=== PATIENT | male | born 1960 | race Caucasian/White ===

== ENCOUNTER 2018-03-05 08:35 | Outpatient (RCR) | payer OTHER, SELFPAY ==
--- NOTE | 2018-03-05 12:26 | HP.FCE ---
HP OT Functional Capacity Eval - Task Lift Floor (Occasional 1-33% of Day): 55 Floor (Frequent 34-66% of Day): 27 Floor (Constant 67-100% of Day): 11 Floor PDL: Medium-Heavy Knee (Occasional 1-33% of Day): 55 Knee (Frequent 34-66% of Day): 27 Knee (Constant 67-100% of Day): 11 Knee PDL: Medium-Heavy Waist (Occasional 1-33% of Day): 55 Waist (Frequent 34-66% of Day): 27 Waist (Constant 67-100% of Day): 11 Waist PDL: Medium-Heavy Shoulder (Occasional 1-33% of Day): 40 Shoulder (Frequent 34-66% of Day): 20 Shoulder (Constant 67-100% of Day): 8 Shoulder PDL: Light-Medium Overhead (Occasional 1-33% of Day): 20 Overhead (Frequent 34-66% of Day): 10 Overhead (Constant 67-100% of Day): NA Overhead PDL: Light Comments: pt demo good lift ability. No report of pain with lifts - Work Activity/Posture Bending: Frequent Ability (34-66% of day) Squatting: Frequent Ability (34-66% of day) Kneeling: Frequent Ability (34-66% of day) Comments: with use of external support Reaching out: Frequent Ability (34-66% of day) Reaching up: Frequent Ability (34-66% of day) Sitting: Frequent Ability (34-66% of day) Walking: Frequent Ability (34-66% of day) Standing: Frequent Ability (34-66% of day) - Reference Duration Sedentary Sedentary Light Light Light Medium Medium Medium Heavy Very Heavy Heavy Occasional (0-33% of day) Frequent (34-66% of day) Constant (67-100% of day) 10 # Negligible Negligible 15 # 8 # Negligible 20 # 10# Negli. 35 # 18 # 7 # 50 # 25 # 10 # 75 # 100 # >100 # 38 # 50 # >50 # 15 # 20 # >20 # - Patient Information Height: 1.78 m Weight:: 122.47 kg Hand Dominance: Right - Medical History Medical History Including Restrictions: Pt states he did have remote past hx of back sx to fix a herniation in [id number] but unsure of the year. pt states he recovered completly from this sx. pt states he has had trippel bipass in 2010 and recovered completly from this sx. pt states in pt states prior to injury in November of 2017 he was in good health. On December 09, 2017 while at work pt was picking up a starter motor weighting over 50# and pt felt a sharp pain in his low back right side. Pt states he went to the workers comp and they sent him to pain mtg. pt was refered to pain mtg. and the pain mtg sent him to therapy. Pt completed 10 sessions of physical therapy. pt states the therpay did help decrease pain and increased his strength. pt is now attending Massage therapy for his back when completed he will have completed 10 sessions. Pt has order for soft back brace and he is wating for the brace to arrive in the mail. - Diagnoses Diagnoses: Lumbar strain - Symptoms Symptoms: Pt states he gets tightness in his back muscles. - Pain Pain: No pain - Work History Work History: PT states he has been employed at [id number] for 14 years. 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 - Behavioral Behavioral: pt was cooroperative and pleasent during the assessment. - ADLS ADLS: Pt states he is ind. with all daily activities. pt is ind with driving, shopping and cleaning activities. - Physical Examination ROM: pt demo all UB/LB ROM WFL Strength: pt demo UB/LB MMT 5/5 grossly throught Right [employer]er Strength Average: 115.00 Right [employer]er Strength Percentile: 83% Left [employer]er Strength Average: 100.00 Left [employer]er Strength Percentile: 70% Right Lateral Pinch Average: 23.33 Right Lateral Pinch Percentile: 75% Left Lateral Pinch Average: 17.66 Left Lateral Pinch Percentile: 25% Right Tripod Pinch Average: 18.66 Right Tripod Pinch Percentile: 50% Left Tripod Pinch Average: 14.66 Left Tripod Pinch Percentile: 25% Sensation: Denies Fine Motor: Denies Balance: No noted loss of balance - Non Material Handling Activities Bending: pt demo the ability to bend forward three times, ten times and ten times rapidly, pt had not report of pain. pt can bend forward on a frequent basis. Squatting: Pt demo the ability to squat three times, ten times and ten times rapidly. pt had no report of back pain. pt can squat on a frequent basis. Kneeling: pt demo the ability to kneel three times, ten times and ten times rapidly. pt demo good ability, no report of back pain during or following task. pt did use external support with task. pt can kneel on a frequent basis with external support. Reaching out/up: Pt demo the ability while standing to reach out/up three times and ten times and ten times rapidly. pt demo good ability, no report of pain. pt can reach up/out on a frequent basis. Walking: PT demo the ability to amb. for 15 min with a good reciprical step pattern. PT can amb on a frequent basis. Standing: pt demo the ability to stand for 10 min with no difficulty. pt can stand on a frequent basis. Sitting: pt demo the ability to sit for 30 min with no expressed or apparent discomfort. pt can sit on a frequent basis Climbing Stairs: pt demo the ability to ascend/descend ten steps with reciprical step pattern and no use of rails. - Dynamic Occasional Lifting Capacity Floor Lift: Pt demo the ability to lift 55# maximally from this level. He carried 55# for [address] on box at knee level with good ability. Knee Lift: Pt demo the ability to lift 55# maximally from this level. Pt carried 55# 4 feet placing on table top at waist level with good ability. Waist Lift: Pt demo the ability to lift 55# maximally from this level. Pt demo the ability to lift 55# from waist level to shouder level with good ability. Shoulder Lift: Pt demo the ability to lift 40# maximally from this level. Overhead Lift: Pt demo the ability to lift 20# maximally from this level. Carrying: pt demo the ability to carry 30# with good ability Comments: pt completed assessment with no report of pain or discomfort. No facial expression indicated discomfort or pain during assessment.
== END 2018-03-05 19:00 | disposition home or self-care (01) ==
LOC: OT 08:35
DX: S39.012D Strain of muscle, fascia and tendon of lower back, subsequent encounter (principal)
CPT/HCPCS: 97750